=== PATIENT | male | born 1960 | race African-American/Black ===

== ENCOUNTER → 2019-05-30 | Outpatient (CLI) | payer MEDICAID | LOC: M OUTALCOH 08:06 | PROVIDERS: ATTEND Psychiatry & Neurology Addiction Medicine | DX: Z03.89 Encounter for observation for other suspected diseases and conditions ruled out (principal) ==

== ENCOUNTER 2019-06-11 10:29 | Outpatient (RCR) | payer MEDICAID | END 2019-06-25 | LOC: M OUTALCOH 10:29 | PROVIDERS: ATTEND Psychiatry & Neurology Addiction Medicine | DX: Z03.89 Encounter for observation for other suspected diseases and conditions ruled out (principal) ==